=== PATIENT | female | born 1985 | race Caucasian/White ===

== ENCOUNTER 2019-03-25 10:20 | Emergency (ER) | payer BC, SELFPAY ==
[2019-03-25 10:31] VITALS: BP 132/79; PULSE 75; RESP 16; TEMP 36.5; O2SAT 97
--- NOTE | 2019-03-25 10:57 | ED.GENADULT ---
HPI - General Adult General Chief complaint: Unspecified Stated complaint: Rib Pain Time Seen by Provider: 03/25/19 11:00 Source: patient Mode of arrival: ambulatory Limitations: no limitations History of Present Illness HPI narrative: 34-year-old female patient presents to the [facility] with complaints of left-sided rib pain for the past month and a half. Patient states that she was diagnosed and treated with bronchitis in February and did start having the left-sided rib pain when she was coughing a lot. Patient states that she recently had oral surgery a couple of days ago and was given [place] for the pain which did help the left-sided rib pain and she thought the pain was getting better however she is off of the narcotics now and only taking ibuprofen and she realized that the rib pain is still there. Denies any shortness of breath but states it does hurt when she takes a deep breath in. Patient denies any coughing and states that most of her bronchitis symptoms have resolved. Patient states she continues to take ibuprofen for the rib pain but denies any other pain relief such as a heating pad. Related Data Home Medications Medication Instructions Recorded Confirmed Mirena 03/25/19 clindamycin HCl 03/25/19 Allergies Allergy/AdvReac Type Severity Reaction Status Date / Time SEASONAL ALLERGENS Allergy Unknown Uncoded 01/23/15 12:16 Review of Systems Review of Systems: Narrative: CONSTITUTIONAL: Denies fever, chills, or sweats. EYES: Denies visual changes, redness, or discharge. ENT: Denies rhinorrhea, congestion, sore throat, or otalgia. CARDIOVASCULAR: Denies chest pain, palpitations, or edema. RESPIRATORY: Denies cough or dyspnea. Positive left-sided rib pain times a month and a half. GASTROINTESTINAL: Denies abdominal pain, nausea, vomiting, or diarrhea. GENITOURINARY: Denies dysuria or hematuria. SKIN: Denies rash or itching. MUSCULOSKELETAL: Denies back pain, joint pain, or myalgia. NEUROLOGIC: Denies headache, numbness, or weakness. PSYCHIATRIC: Denies anxiety or depression. PMFSH Comments At the time of my signature I agree with nursing past medical history, surgical, social, and family history. There is no relevant family history pertinent to the presenting complaint. Exam Narrative: Exam Narrative: GENERAL: Well-appearing, well-nourished, and in no acute distress. HEAD: Normocephalic, atraumatic. EYES: PERRLA and EOMI. ENT: Nares clear, no rhinorrhea or epistaxis. Mucous membranes moist. NECK: Supple. No lymphadenopathy CHEST: CTA, no wheezing, rhonchi or rales, no orthopena or dyspnea. Able to speak in clear complete sentences, no retractions or accessory muscle use. No tripod positioning. No surface trauma. Patient does have some pain on palpitation to the left lower rib area. There is no surface trauma, bruising noted. No instability noted on palpation to the ribs. HEART: Regular rate and rhythm. No murmur heard. Normal peripheral pulses. ABDOMEN: Soft, nontender, nondistended, normal active bowel sounds. EXTREMITIES: Normal range of motion. No edema. SKIN: Warm, dry, no rash. NEURO: No focal deficits. Alert and oriented x3. Course Vital Signs Vital signs: Vital Signs Temperature 36.5 C 03/25/19 10:31 Pulse Rate 75 03/25/19 10:31 Respiratory Rate 16 03/25/19 10:31 Blood Pressure 132/79 03/25/19 10:31 Pulse Oximetry 97 03/25/19 10:31 Temperature 36.5 C 03/25/19 10:31 Pulse Rate 75 03/25/19 10:31 Respiratory Rate 16 03/25/19 10:31 Blood Pressure 132/79 03/25/19 10:31 Pulse Oximetry 97 03/25/19 10:31 Vital signs reviewed. The patient has been informed that they may have pre-hypertension or Hypertension based on a BP reading in the department. I recommend that the patient call the primary care provider listed on their discharge instructions or a physician of their choice this week to arrange follow up for further evaluation of possible pre-hypertension or
== END 2019-03-25 11:14 | disposition home or self-care (01) ==
PROVIDERS: Emergency Provider Nurse Practitioner Family
DX: R09.1 Pleurisy (principal)
CPT/HCPCS: 99213; G0463

== ENCOUNTER → 2020-07-11 15:34 | Outpatient (CLI) | payer BC, SELFPAY ==
--- NOTE | ~2020-07-11 | XR_ITS ---
XR knee LT min 4V 07/11/2020 16:01 INDICATION: Left knee pain PROCEDURE: 4 views left knee COMPARISON: No prior studies for comparison. FINDINGS: Fracture, dislocation or subluxation is not identified. No significant joint effusion. The soft tissues appear within normal limits. No foreign bodies are identified. IMPRESSION: 1: NO ACUTE BONE OR JOINT ABNORMALITY IDENTIFIED. Reviewed, dictated and finalized at location A.
== END ==
DX: S89.92XA Unspecified injury of left lower leg, initial encounter (principal)
CPT/HCPCS: 73564

== ENCOUNTER → 2020-08-25 16:22 | Outpatient (CLI) | payer BC, SELFPAY ==
--- NOTE | ~2020-08-25 | XR_ITS ---
XR ankle RT min 3V, XR foot RT min 3V 08/25/2020 16:55 Indication: Right ankle and foot pain Procedure: 4 views right ankle and 4 views right foot Comparison: No prior studies for comparison. Findings: There are small degenerative calcaneal enthesophytes. There is a small ossific fragment at the medial malleolus, suspicious for avulsion fracture, age indeterminate. There are mild degenerativ e changes of the ankle. Lisfranc joint intact. No other fracture or traumatic malalignment is identif ied. Impression: 1: Probable age-indeterminate avulsion fracture medial malleolus. Correlate for point tenderness. Reviewed, dictated and finalized at location A. Impression: 1: Probable age-indeterminate avulsion fracture medial malleolus. Correlate for point tenderness. Impression: 1: Probable age-indeterminate avulsion fracture medial malleolus. Correlate for point tenderness.
== END ==
PROVIDERS: PCP Family Medicine; Visit Provider Family Medicine
DX: M19.071 Primary osteoarthritis, right ankle and foot (principal)
CPT/HCPCS: 73610; 73630

== ENCOUNTER 2020-10-26 14:13 | Emergency (ER) | payer BC, SELFPAY ==
--- NOTE | ~2020-10-26 | US_ITS ---
EXAMINATION: US pelvic complete DATE: 10/26/2020 18:10 INDICATION: Right lower quadrant pain Comparison:CT dated 10/26/2020 TECHNIQUE: Multiple transabdominal and endovaginal sonographic images of the pelvis performed. FINDINGS: The uterus measures 7.6 x 5.2 x 3.1 cm. The endometrial complex measures 4 mm. The right ovary measures 5.7 x 2.8 x 2.7 cm and the left ovary measures 2.8 x 2.1 x 1.7 cm. There ar e small follicles in each ovary. Normal doppler signal in both ovaries. There are right ovarian cysts , largest measuring 3 x 2.5 x 2.7 cm corresponding to the cyst identified on CT. There is no free fluid in the pelvis. There are no abnormal masses seen on either side. IMPRESSION: 1. Right ovarian cysts, largest measuring 3 cm. Reviewed, dictated and finalized at location A.
--- NOTE | ~2020-10-26 | CT_ITS ---
EXAMINATION: CT abdomen pelvis w con DATE: 10/26/2020 16:44 INDICATION: Right lower quadrant pain. TECHNIQUE: Computed tomography (CT) of the abdomen and pelvis was performed with 100 cc Omnipaque 350 intravenous contrast. The dose-length product was 1403.30 mGy-cm. Automated exposure control and ite rative reconstruction technique were employed. COMPARISON: None. FINDINGS: Lung bases are unremarkable. Heart size normal. No significant pleural or pericardial effus ion. No significant vascular abnormality. No lymphadenopathy. There is a fat-containing umbilical her bl[place]. Nonobstructive bowel gas pattern. No lymphadenopathy. IUD present in the uterus. There is a 3 cm right ovarian cyst. Normal appendix. The liver, spleen, pancreas, adrenal glands and left kidney are unremarkable. There is a small subcen timeter hypodensity lower pole the right kidney, likely benign. Gallbladder is present. Bladder is no t well distended for evaluation.. IMPRESSION: 1. Right ovarian cyst measuring approximately 3 cm. 2: Normal appendix. Reviewed, dictated and finalized at location A.
[2020-10-26 15:01] VITALS: BP 151/85; PULSE 70; RESP 18; TEMP 36.2; O2SAT 99
--- NOTE | 2020-10-26 15:20 | ED.ABDPAIN ---
HPI - Abdominal Pain General Chief Complaint: Abdominal Pain Stated Complaint: Abd Pain Time Seen by Provider: 10/26/20 15:11 Source: patient Mode of arrival: ambulatory Limitations: no limitations History of Present Illness HPI narrative: Patient is a 35-year-old female who presents for evaluation of right-sided lower abdominal pain. Patient was referred to emergency department from an urgent care where she was initially evaluated for the same complaint. Pain located in the right lower quadrant associated with associated nausea and vomiting. Patient with fever and chills earlier this morning, acute onset of right lower quadrant abdominal pain while she was in class today. Pain was initially sharp, stabbing in nature, now described as a dull, aching pain. No radiation to the flank or lower pelvis. No vaginal discharge or bleeding. Patient has an IUD in, does not believe she is . She denies diarrhea. No rhinorrhea, congestion. Patient received a milligrams of Zofran at the urgent care and then elected come to our emergency department via personalize vehicle. Last oral intake over 6 hours ago. Related Data Home Medications Medication Instructions Recorded Confirmed Mirena 03/25/19 clindamycin HCl 03/25/19 Allergies Allergy/AdvReac Type Severity Reaction Status Date / Time SEASONAL ALLERGENS Allergy Unknown Uncoded 01/23/15 12:16 Review of Systems Review of Systems: CONSTITUTIONAL: Reports subjective fever, reports chills EYES: Denies visual changes, redness, or discharge. ENT: Denies rhinorrhea, congestion, sore throat, or otalgia. CARDIOVASCULAR: Denies chest pain, palpitations, or edema. RESPIRATORY: Denies cough or dyspnea. GASTROINTESTINAL: Reports abdominal pain, nausea and vomiting GENITOURINARY: Denies dysuria or hematuria. SKIN: Denies rash or itching. MUSCULOSKELETAL: Denies back pain, joint pain, or myalgia. NEUROLOGIC: Denies headache, numbness, or weakness. [facility] Social History Social History (Updated 10/26/20 @ 15:22 by Edna Pimentel MD) Smoking status: Former smoker Tobacco type: cigarettes Alcohol intake: current Substance use: never Gender identity (if verbalized by the patient): Female Exam Narrative: GENERAL: Awake, alert, conversant HEAD: Normocephalic, atraumatic. EYES: PERRLA and EOMI. ENT: Nares clear, no rhinorrhea or epistaxis. Mucous membranes moist. NECK: Supple. CHEST: No respiratory distress, breathing even and non labored HEART: Regular rate, sinus rhythm ABDOMEN:Non distended,RLQ abd pain with guarding, + rebound, non rigid EXTREMITIES: Normal range of motion. No edema. SKIN: Warm, dry, no rash. NEURO:No focal deficits. Alert and oriented x3 Course Vital Signs Vital signs: Vital Signs Temperature 36.2 C L 10/26/20 15:01 Pulse Rate 70 10/26/20 15:01 Respiratory Rate 18 10/26/20 15:01 Blood Pressure 151/85 H 10/26/20 15:01 Pulse Oximetry 99 10/26/20 15:01 Temperature 36.2 C L 10/26/20 15:01 Pulse Rate 65 10/26/20 17:00 Respiratory Rate 18 10/26/20 17:00 Blood Pressure 149/72 H 10/26/20 17:00 Pulse Oximetry 100 10/26/20 17:00 MDM - Abdominal Pain MDM Narrative Medical decision making narrative: Patient presenting for evaluation of right lower quadrant abdominal pain. At time of assessment, patient's pain is minimal. Patient does have some tenderness on exam without peritoneal signs. Patient with negative CT imaging. Patient does have a 3 mm right ovarian cyst. Her vaginal US is normal. No ovarian pathology with good flow. No UTI. No leukocytosis. Patient is felt to be a reasonable candidate for outpatient management. Patient was instructed as to limitations of imaging and lab evaluation and encouraged to return to the emergency department her primary physician for repeat exam in 12 hours if continued or worsening pain. Differential Diagnosis Differential diagnosis: Likely abdominal pain, acute appendicitis, con
[2020-10-26 15:52] LABS: Basophils Absolute Auto 0.1 K/mm3 (0.0-0.1); Basophils Percent Auto 0.6 % (0.2-1.2); Eosinophils Absolute Auto 0.1 K/mm3 (0-0.3); Hematocrit 43.6 % (37.0-47.0); Hemoglobin 14.9 g/dL (12.0-15.0); Immature Granulocyte Absolute 0.04 K/mm3 (0.00-0.031); Immature Granulocyte Percent A 0.4 % (0-0.5); Lymphocytes Absolute Auto 1.95 K/mm3 (0.9-3.2); Lymphocytes Percent Auto 20.4 % (18.3-44.2); Mean Corpuscular HGB Conc 34.2 g/dl (32-36); Mean Corpuscular Volume 90.6 fl (80-100); Mean Platelet Volume 9.4 fl (7.4-10.4); Monocytes Absolute Auto 0.6 K/mm3 (0.1-0.6); Monocytes Percent Auto 6.7 % (2.6-8.5); Neutrophils Absolute Auto 6.8 K/mm3 (1.3-6.7); Neutrophils Percent Auto 70.9 % (45.5-73.1); Platelet Count Result 247 k/mm3 (150-375); Red Blood Count 4.81 M/mm3 (4.2-5.4); Red Cell Distribution Width 11.9 % (11.5-14.5); White Blood Count 9.6 K/mm3 (4.5-10.0)
[2020-10-26 16:00] VITALS: BP 147/72; PULSE 69; RESP 17; O2SAT 100
[2020-10-26 16:00] LABS: Add Urine Microscopic? YES; Appearance Urine Clear (Clear); Bilirubin Urine Negative (Negative); Blood Urine Negative (Negative); Color Urine Yellow (Yellow); Glucose Urine UA Negative (Negative); Ketones Urine Negative (Negative); Leukocyte Esterase Ur Negative LEU/UL (Negative); Mucus Urine Rare /lpf; Nitrate Urine Negative (Negative); Protein Urine 1+ mg/dL (Negative); RBC Urine 0-2 /hpf (0-2); Squamous Epithelial Cell Urine Moderate /hpf (Few); Urobilinogen Urine Negative mg/dL (<2.0); WBC Urine 0-3 /hpf
[2020-10-26 16:12] LABS: Alanine Aminotransferase 29 U/L (4-35); Albumin Level 4.7 g/dL (3.5-5.1); Alkaline Phosphatase 58 U/L (38-126); Anion Gap 8 mmol/L (8-16); Aspartate Amino Transferase 30 U/L (14-36); Bilirubin,Total 0.7 mg/dL (0.2-1.3); Blood Urea Nitrogen 10 mg/dL (7-17); Calcium 9.4 mg/dL (8.4-10.2); Carbon Dioxide 26 mmol/L (22-30); Chloride 102 mmol/L (98-107); Estimated CRCL calculation 99 ml/min; Estimated Glomerular Filt Rate > 60; Glucose 103 mg/dL (65-110); Lipase 66 U/L (23-300); Potassium 3.9 mmol/L (3.4-5.0); Sodium 136 mmol/L (137-145)
[2020-10-26] MEDS: SODIUM CHLORIDE 0.9% IV 1,000 ML 999 ML IV CONT (16:12)
[2020-10-26 17:00] VITALS: BP 149/72; PULSE 65; RESP 18; O2SAT 100
[2020-10-26] MEDS: ACETAMINOPHEN 500 MG TABLET 1000 MG PO (19:16)
[2020-10-26] MEDS: KETOROLAC (*BKC) 60 MG/2 ML VIAL 30 MG IM (19:17)
== END 2020-10-26 19:19 | disposition home or self-care (01) ==
PROVIDERS: Emergency Medicine; Emergency Provider Emergency Medicine; PCP Family Medicine
DX: N83.201 Unspecified ovarian cyst, right side (principal); Z87.891 Personal history of nicotine dependence; Z97.5 Presence of (intrauterine) contraceptive device
CPT/HCPCS: 36415; 74177; 76856; 80053; 81001; 81025; 83690; 85025; 96360; 96372; 99284; A9270; J1885; J7030; Q9967

== ENCOUNTER 2022-12-26 11:46 | Emergency (ER) | payer OTHER, SELFPAY ==
[2022-12-26 12:04] VITALS: PULSE 85; RESP 18; O2SAT 96
[2022-12-26 12:06] VITALS: BP 137/89; PULSE 78; RESP 16; TEMP 37.1; O2SAT 90
--- NOTE | 2022-12-26 12:33 | ED.URI ---
HPI - URI/Sore Throat General Chief Complaint: Upper Respiratory Infection Stated Complaint: wheezing in chest Time Seen by Provider: 12/26/22 12:30 Source: patient Mode of arrival: ambulatory Limitations: no limitations History of Present Illness HPI Narrative: 37-year-old female presented for complaint of cough and wheezing worsening over the past few days. Endorses at the end of the deep breath she starts coughing fits and has had difficulty sleeping. She states that the onset of symptoms she started with sinus congestion fever/chills, and headache which have somewhat improved. Negative covid the day after symptom onset. She is taking [id number] medication without significant relief. Endorses history of bronchitis and pleurisy. Denies sick contacts. Related Data Home Medications Medication Instructions Recorded Confirmed Mirena 03/25/19 Zyrtec 12/26/22 Allergies Allergy/AdvReac Type Severity Reaction Status Date / Time amoxicillin Allergy Difficulty Verified 12/26/22 12:19 Breathing Penicillins Allergy Hives Verified 12/26/22 12:18 SEASONAL ALLERGENS Allergy Unknown Unknown Uncoded 12/26/22 12:18 Review of Systems Review of Systems: CONSTITUTIONAL: Denies body aches, reports fever, chills EYES: Denies visual changes, redness, or discharge. ENT: Reports rhinorrhea, congestion, denies sore throat, or otalgia. CARDIOVASCULAR: Denies chest pain, palpitations, or edema. RESPIRATORY: Reports cough, wheezing. GASTROINTESTINAL: Denies abdominal pain, nausea, vomiting, or diarrhea. GENITOURINARY: Denies dysuria or hematuria. SKIN: Denies rash, itching, or wounds. MUSCULOSKELETAL: Denies back pain, joint pain, or myalgia. NEUROLOGIC: Denies headache, numbness, tingling, or weakness. All systems reviewed & are unremarkable except as noted in HPI and below PMFSH Past Medical History Medical History (Updated 12/26/22 @ 13:22 by Serenity Prieto APRN) Sleep apnea Surgical History Surgical History (Updated 12/26/22 @ 12:42 by Serenity Prieto APRN) History of tonsillectomy Social History Social History Smoking status: Former smoker Tobacco type: cigarettes Alcohol intake: current Substance use: never Gender identity (if verbalized by the patient): Female Comments At time of signature, I have reviewed and agree with nursing past medical, surgical, social and family history unless otherwise noted. Please see nursing chart for further information. There is no relevant family history pertinent to the presenting complaint Exam Narrative: GENERAL: Well-appearing, in no acute distress. EYES: EOMI. No redness or drainage. Conjunctivae normal. ENT: Mucous membranes pink and moist. Mild rhinorrhea. TMs normal bilaterally. Throat normal. Uvula midline. NECK: Normal AROM. Supple. CHEST: No respiratory distress. Expiratory Wheezing to all booker. Speaking full sentences without difficulty. HEART: Regular rate and rhythm. No murmur appreciated. ABDOMEN: Soft, nontender, nondistended, normal active bowel sounds. EXTREMITIES: Normal range of motion. No edema. SKIN: Warm, dry, no rash. Capillary refill normal. Normal skin turgor. NEURO: Alert and oriented x3. Gait steady. PSYCH: Normal affect. Course Course Emergency Course: Patient is aware of diagnosis, understands and agrees to treatment plan. Anticipatory guidance given. Patient agrees to follow-up as directed and is aware of reasons to seek care at the emergency department. Portions of this record may have been created with voice recognition software Level of Care: Express Care Visit Vital Signs Vital signs: Vital Signs Pulse Rate 85 12/26/22 12:04 Respiratory Rate 18 12/26/22 12:04 Pulse Oximetry 96 12/26/22 12:04 Oxygen Delivery Room Air 12/26/22 12:04 Temperature 98.8 F 12/26/22 12:06 Pulse Rate 92 12/26/22 13:06 Respi
[2022-12-26] MEDS: ALBUTEROL SULFATE NEB 2.5 MG/3 ML INH INHALATION (12:44)
[2022-12-26] MEDS: IPRATROPIUM BR 0.02% INH SOLN 0.5 MG/2.5 ML VIAL INHALATION (12:44)
[2022-12-26 13:06] VITALS: PULSE 92; RESP 18; O2SAT 95
== END 2022-12-26 13:26 | disposition home or self-care (01) ==
PROVIDERS: Emergency Provider Nurse Practitioner Family; PCP Family Medicine
DX: J40 Bronchitis, not specified as acute or chronic (principal); Z87.891 Personal history of nicotine dependence
CPT/HCPCS: 94640; 99213; G0463